=== PATIENT | female | born 1955 | race Caucasian/White ===

== ENCOUNTER → 2021-06-12 10:14 | Outpatient (CLI) | payer SELFPAY ==
--- NOTE | ~2021-06-12 | MR_ITS ---
EXAMINATION: MR lower leg LT wo con DATE: 06/12/2021 11:29 INDICATION: Left calf pain. TECHNIQUE: Magnetic resonance imaging (MRI) of the left lower leg was performed without intravenous c ontrast. Sequences included axial T1-weighted FSE and T2-weighted FS FSE and coronal and sagittal T1- weighted FSE and STIR FSE. COMPARISON: None. FINDINGS: Bone alignment is normal. No fracture. The bone marrow signal intensity is normal. There is an 11.4 x 5.7 x 3.9 cm hematoma involving soleus and medial head of gastrocnemius muscles, consisten t with grade 2 strain. There is a small Beach's cyst. There is subcutaneous edema in the lower leg. IMPRESSION: 1. Hematoma involving the soleus and medial head of gastrocnemius muscles, consistent with grade [address] rain. 2. Small Beach's cyst. Reviewed, dictated and finalized at location B. IMPRESSION: 1. Hematoma involving the soleus and medial head of gastrocnemius muscles, cons istent with grade 2 strain. 2. Small Beach's cyst.
== END ==
PROVIDERS: PCP Family Medicine; Visit Provider Family Medicine
DX: M79.662 Pain in left lower leg (principal); M79.89 Other specified soft tissue disorders
CPT/HCPCS: 73718